=== PATIENT | male | born 1945 ===

== ENCOUNTER 2020-11-26 12:41 | Emergency (ER) | payer OTHER ==
[2020-11-26 14:16] LABS: HEMOGLOBIN 14.8 gm/dl (14.0-17.5); RED BLOOD COUNT 4.86 M/UL (4.20-5.50); WHITE BLOOD COUNT 7.3 K/UL (4.5-11.0)
[2020-11-26] MEDS ORDERED: ONDANSETRON ODT4 MG SL (19:28)
== END 2020-11-26 22:33 | disposition home or self-care (01) ==
LOC: ER1 12:41
PROVIDERS: Physician Assistant
DX: U07.1 COVID-19 (principal); J12.82 Pneumonia due to coronavirus disease 2019; E86.0 Dehydration; R79.1 Abnormal coagulation profile; I10 Essential (primary) hypertension; E11.9 Type 2 diabetes mellitus without complications; Z85.038 Personal history of other malignant neoplasm of large intestine
CPT/HCPCS: 36415; 71045; 80053; 81001; 82550; 82553; 83874; 84484; 85025; 85379; 93005; 96374; 99284; J2405; J7030; M0239; Q9967